=== PATIENT | female | born 1960 | race Caucasian/White ===

== ENCOUNTER 2025-07-24 05:58 | Day surgery (SDC) | payer OTHER, MEDICARE ==
[2025-07-21 09:54] LABS: Absolute Lymphocytes (CBC) 1.8 K/uL (0.7-4.9); Hematocrit 45.7 % (36.0-45.0); Hemoglobin 15.8 g/dL (12.0-15.0); MCH 31.3 pg (27.0-35.0); MCHC 34.6 g/dL (32.0-36.0); MCV 90.5 fL (80-100); MPV 8.2 fL (7.6-11.3); Nucleated RBC Absolute Count 0.0 (0-0); Nucleated Red Blood Cells % 0.2 % (0-0); RBC Red Blood Cell Count 5.05 M/uL (3.86-4.86); White Blood Count 6.30 thou/uL (4.3-10.9)
[2025-07-21 10:01] LABS: PT Prothrombin Time 12.1 SECONDS (10-13.0); PTT, Activated Partial Thromb 33.6 SECONDS (27.2-37.4); Protime INR 1.07
[2025-07-21 10:11] LABS: Anion Gap 8.6 mEq/L (5.0-15.0); BUN Blood Urea Nitrogen 17.0 mg/dL (7-18); Glucose Level 90.0 mg/dL (74-106); Potassium 3.6 mEq/L (3.5-5.1)
[2025-07-24] MEDS ORDERED: LIDOCAINE 1% MPF 5 ML VIAL ONE (06:37)
[2025-07-24] MEDS ORDERED: MIDAZOLAM HCL 2 MG/2 ML INJ ONE (06:37)
[2025-07-24] MEDS ORDERED: BUPIVACAINE 0.5% PF 10 ML VIAL ONE (06:38)
[2025-07-24] MEDS ORDERED: EPINEPHRINE 1 MG/ML VIAL ONE (06:38)
[2025-07-24] MEDS ORDERED: FENTANYL CITR 100 MCG/2 ML ONE (06:38)
[2025-07-24] MEDS: Ringers Lactate 1,000 ML IV ONE ×2 (07:24→09:05)
[2025-07-24] MEDS ORDERED: LIDOCAINE 2% MPF 5 ML VIAL ONE (07:31)
[2025-07-24] MEDS ORDERED: KETOROLAC 30 MG/ML INJ ONE (07:31)
[2025-07-24] MEDS ORDERED: ONDANSETRON 4 MG/2 ML VIAL ONE (07:31)
[2025-07-24] MEDS ORDERED: ROCURONIUM 50 MG/5 ML VIAL IV ONE (07:32)
[2025-07-24] MEDS: SCOPOLAMINE HYDROBROMIDE PATCH TD ONE (07:55)
[2025-07-24] MEDS: CEFAZOLIN SODIUM 1 GM/VIAL ONE (07:58)
[2025-07-24] MEDS ORDERED: NS 0.9% VIAL 10 ML ONE (08:27)
[2025-07-24] MEDS: EPINEPHRINE 1 MG/ML VIAL ONE (08:41)
--- NOTE | 2025-07-24 09:41 | P.BOP ---
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
--- NOTE | 2025-07-24 09:48 | P.OP ---
Preoperative diagnosis: Left shoulder partial rotator cuff tear, biceps tendinitis, AC arthritis Postoperative diagnosis: Same, left shoulder SLAP tear Primary procedure: Left shoulder arthroscopic rotator cuff debridement with SLAP debridement Secondary procedure: Left shoulder open distal clavicle excision Other procedure(s): Left shoulder arthroscopic subacromial bursectomy Anesthesia: General Estimated blood loss: 10 cc Specimen: None Findings: See dictation Operative Technique: Indication For Procedure: Brittany is a 65-year-old female who presented to my clinic with signs, symptoms, and MRI findings consistent with a left shoulder partial-thickness rotator cuff tear and symptomatic AC arthritis. I discussed with the patient risks and benefits associated with operative and nonoperative treatment. She expressed understanding and elected to proceed with operative treatment. Description Of Procedure: After informed consent was obtained, the patient was identified in the preoperative holding area. The left upper extremity was marked. The patient then was brought to the PACU where she underwent a left- sided interscalene block performed by Anesthesia. The patient was brought back to the operating room, transferred to the operative table in supine fashion, placed under general endotracheal anesthesia. She was then placed in a beach chair position with her extremities well padded. The left upper extremity was then prepped and draped in usual sterile fashion. A time-out was initiated. The correct patient and procedure were performed and identified. The patient did receive preoperative prophylactic antibiotics. Via the posterior portal position, a spinal needle was introduced in the glenohumeral joint and the shoulder was injected with 30 cc of normal saline to distend the capsule. A stab incision was made posteriorly and a posterior portal was created. Arthroscope was brought in via the posterior portal position and diagnostic arthroscopy was performed. Under direct visualization, an anterior portal and cannula were created. The patient was noted to have a type 1 SLAP tear, which was debrided using the arthroscopic shaver. There were no significant instability of the superior labrum or anterior posterior labrum, which were stable to probe. There was some mild tenosynovitis of the bicipital tendon however so significant fraying or tear was noted and it was left in place. Subscapularis was found to be stable and intact to probe. There were no loose bodies within the axillary pouch. There was small anterior articular sided supraspinatus tear. This was debrided using an arthroscopic shaver. It appeared to be less than 10% in thickness of the supraspinatus. Patient was noted to have some significant chondromalacia changes noted of the anterior humeral head. Any loose chondral flaps were debrided using an arthroscopic shaver. A lateral portal was created and a subacromial bursectomy was performed. Using an obturator the bursal side of the rotator cuff was evaluated. There was no fraying and no signs of any rotator cuff tear. Arthroscopic instruments were then removed without complication. Next, attention was taken to the distal clavicle. Approximately a 4 cm horizontal incision was placed centered over the AC joint. Dissection was then taken down to the superior capsule of the AC joint. The capsule was then elevated off the superior distal clavicle both anterior and posteriorly. 1 cm was marked from the AC joint and using a saw, a distal clavicle excision was performed. Using a rasp the end of the distal clavicle was smoothed. The wound was then irrigated thoroughly with normal saline. The capsule was approximated using an 0 Vicryl. Wounds were then irrigated thoroughly with normal saline. Subcutaneous tissue was approximated using a 2-0 Vicryl. Portals were approximated using a 3-0 Monocryl. Sterile dressings were applied. Shoulder immobilizer patient was placed. The patient was awakened and transferred to PACU in stable condition. Postoperative Plan: The patient will be nonweightbearing in a shoulder immobilizer for 6 weeks. We will follow the distal clavicle excision protocol 3 weeks postoperatively. Complications: None Implants: None Fluids & blood products: Per anesthesia record Transferred to: Recovery Room Condition: Good
--- NOTE | 2025-07-24 10:40 | RAD REPORT ---
EXAM:Shoulder 1 View HISTORY: post-op COMPARISON: None FINDINGS/IMPRESSION: Postoperative changes seen on acromioplasty. Mild glenohumeral joint degenerativ e changes. No unexpected postoperative finding.
[2025-07-24] MEDS: HYDROCODONE/APAP 10/325 TAB ONE (10:45)
[2025-07-24 10:48] VITALS: BP 150/86; TEMP 97.2; O2SAT 100
== END 2025-07-24 11:20 | disposition home or self-care (01) ==
LOC: OR 05:58
PROVIDERS: ATTEND Orthopaedic Surgery Sports Medicine
PROC: 0PBB0ZZ Excision of Left Clavicle, Open Approach (ICD-10-PCS; 2025-07-24)
PROC: 0RBK4ZZ Excision of Left Shoulder Joint, Percutaneous Endoscopic Approach (ICD-10-PCS; principal; 2025-07-24 08:00)
DX: M75.112 Incomplete rotator cuff tear or rupture of left shoulder, not specified as traumatic (principal); M19.012 Primary osteoarthritis, left shoulder; M75.22 Bicipital tendinitis, left shoulder
CPT/HCPCS: 23125; 29823; 93005; 85025; 80048; 36415; 85610; 85730; 73020; A4216; J2704; J2003 ×2; J2250; J3010; J1100 ×2; J0171 ×2; J2405; J7120 ×2; J0690; J0169; J1885